=== PATIENT | female | born 1970 | race Caucasian/White ===

== ENCOUNTER 2019-06-16 19:46 | Emergency (ER) | payer OTHER, MEDICAID ==
[~2019-06-16] VITALS: Ht 154.9 cm; Wt 77.1 kg
[~2019-06-16 19:46] MED LIST: ALPRAZOLAM OR; LABETALOL 100100 MG OR; PRENATAL OR; SOMA250 MG PO; SUBOXONE 2 MG-1 EAC1 BU; VICODIN 5-3001 EACH PO
[2019-06-16] MEDS ORDERED: ADDERALL 10 MG10 MG PO (19:56)
[2019-06-16 20:14] LABS: URINE BILIRUBIN NEGATIVE (Negative); URINE BLOOD 1+ (Negative); URINE COLOR YELLOW; URINE GLUCOSE-RANDOM NEGATIVE (Negative); URINE KETONES NEGATIVE (Negative); URINE NITRITE-REFLEX NEGATIVE (Negative); URINE PROTEIN NEGATIVE (Negative); URINE UROBILINOGEN 0.2 E.U./dl (0.2-1.0)
[2019-06-16 20:16] LABS: URINE CLARITY HAZY; URINE LEUKOCYTES-REFLEX 2+ (Negative)
[2019-06-16 20:22] LABS: SQUAMOUS 4-10 Moderate /LPF (0-3)
[2019-06-16 20:23] LABS: BACTERIA-REFLEX 1-9 Few /HPF (None Seen); CASTS None Seen /LPF (None Seen); CRYSTALS None Seen /LPF (None Seen); URINE RBC 3-10 Few /HPF (0-2); URINE WBC-REFLEX 0-5 Rare /HPF (0-5)
[2019-06-16 20:29] LABS: ABSOLUTE BASOPHILS 0.1 thou/uL (0.0-0.2); ABSOLUTE EOSINOPHILS 0.1 thou/uL (0.0-0.7); ABSOLUTE LYMPHOCYTES 2.4 thou/uL (0.8-5.3); ABSOLUTE MONOCYTES 0.7 thou/uL (0.0-1.2); ABSOLUTE NEUTROPHILS 9.4 thou/uL (1.6-8.1); BASOPHILS 0.9 %; EOSINOPHILS 0.7 %; HEMATOCRIT 42.4 % (37.0-47.0); HEMOGLOBIN 14.2 gm/dL (12.0-15.0); MCH 29.6 pg (26.0-34.0); MCHC 33.4 g/dL (28.0-37.0); MCV 88.5 fL (80.0-100.0); MONOCYTES 5.8 %; MPV 9.2 fl. (7.2-11.1); NUCLEATED RBCS 0 /100WBC; PLATELET COUNT* 263 thou/uL (150-400); POLYS 73.6 %; RBC 4.79 mil/uL (4.20-5.00); RDW-CV 13.2 % (10.5-14.5); WBC 12.9 thou/uL (4.0-11.0)
[2019-06-16 20:36] LABS: CREATININE 0.8 mg/dL (0.6-1.3); POTASSIUM 4.5 mmol/L (3.5-5.1)
[2019-06-16 20:41] LABS: ALBUMIN 3.9 g/dL (3.4-5.0); TOTAL BILIRUBIN 0.1 mg/dL (<0.1-1.0); TOTAL PROTEIN 7.3 g/dL (6.4-8.2)
[2019-06-16] MEDS ORDERED: DOXYCYCLINE 10100 MG PO ×2 (21:12→21:13)
[2019-06-16 21:17] VITALS: BP 153/58
== END 2019-06-16 21:17 | disposition home or self-care (01) ==
LOC: M.ERS 19:46
PROVIDERS: Nurse Practitioner Family
DX: N72 Inflammatory disease of cervix uteri (principal); Z98.890 Other specified postprocedural states; Z90.10 Acquired absence of unspecified breast and nipple

== ENCOUNTER 2019-09-09 09:57 | Emergency (ER) | payer OTHER, MEDICAID ==
[~2019-09-09] VITALS: Ht 154.9 cm; Wt 77.1 kg
[~2019-09-09 09:57] MED LIST changes: +ADDERALL 10 MG10 MG PO; +DOXYCYCLINE 10100 MG PO
[2019-09-09] MEDS ORDERED: CLONAZEPAM 0.50.5 M1 PO (10:08)
[2019-09-09] MEDS ORDERED: AUGMENTIN 875-1 EACH PO (10:59)
[2019-09-09 11:28] VITALS: BP 139/82
== END 2019-09-09 11:21 | disposition home or self-care (01) ==
LOC: M.ERS 09:57
DX: H66.92 Otitis media, unspecified, left ear (principal); F17.210 Nicotine dependence, cigarettes, uncomplicated; Z98.890 Other specified postprocedural states

== ENCOUNTER 2020-11-10 13:15 | Emergency (ER) | payer OTHER, MEDICAID ==
[~2020-11-10] VITALS: Ht 165.1 cm; Wt 95.3 kg
[~2020-11-10 13:15] MED LIST changes: +AUGMENTIN 875-1 EACH PO; +CLONAZEPAM 0.50.5 M1 PO
[2020-11-10] MEDS ORDERED: NEO-POLYMYXIN-H10 ML LT. EAR (13:57)
[2020-11-10] MEDS ORDERED: DIFLUCAN150 MG PO (14:28)
[2020-11-10 14:35] VITALS: BP 158/82
== END 2020-11-10 14:35 | disposition home or self-care (01) ==
LOC: M.ERS 13:15
DX: H60.92 Unspecified otitis externa, left ear (principal); Z20.2 Contact with and (suspected) exposure to infections with a predominantly sexual mode of transmission; F17.210 Nicotine dependence, cigarettes, uncomplicated; Z98.890 Other specified postprocedural states; Z96.641 Presence of right artificial hip joint